=== PATIENT | male | born 1950 | race Caucasian/White ===

== ENCOUNTER 2017-10-20 15:11 | Outpatient (CLI) | payer MEDICARE ==
--- NOTE | 2017-10-20 17:22 | RAD ---
CERVICAL SPINE RADIOGRAPHS THREE VIEWS LATERAL PROJECTIONS WITH FLEXION AND EXTENSION POSITIONING 10/20/17 INDICATION: Cervical radiculopathy. FINDINGS: There is a mild degree of retrolisthesis at C3-4. Osseous fusion of the C6-7 disc space present with degenerative hypertrophy. No obvious translational motion of significance is seen. Multilevel end norm te degenerative change with osteophyte formation and disc space narrowing present. There is multiple end plate degenerative change with osteophyte formation and disc space narrowing present. There is mu ltilevel facet degenerative hypertrophy, as well. IMPRESSION: Degenerative changes of the cervical spine, limited in assessment by lateral projections alone. No ob vious translational motion. Mild retrolisthesis of C3-4 present. POS: JORGE
== END 2017-10-20 15:12 | disposition home or self-care (01) ==
LOC: TBSIIMAG 15:11
PROVIDERS: ATTEND Neurological Surgery
DX: M47.22 Other spondylosis with radiculopathy, cervical region (principal); M43.12 Spondylolisthesis, cervical region
CPT/HCPCS: 72040